=== PATIENT | female | born 1980 | race Caucasian/White ===

== ENCOUNTER 2021-03-19 05:08 | Emergency (ER) | payer SELFPAY ==
[~2021-03-19] VITALS: Ht 172.7 cm; Wt 63.5 kg
[2021-03-19 05:18] VITALS: BP_SYST 110
--- NOTE | 2021-03-19 05:23 | NUR ---
PT ARRIVED BY [facility] FOR COMPLAINTS OF BILATERAL LEG PAIN AFTER BEING FOUND [place]ALKING [place]. PT STATES SHE IS TIRED AND HER LEGS HURT. STATES 10/10 PAIN. PT WAS FOUND BY POLICE OFFICERS AND ASKED FOR AN AMBULANCE DUE TO THE PAIN. [id number].
--- NOTE | 2021-03-19 05:35 | NUR ---
PT IS SCREAMING AND WAILING IN HER ROOM COMPLAININGOF LEG PAIN. DOCTOR IS AWARE
[2021-03-19] MEDS ORDERED: fentaNYL CITRATE/PF 100 MCG/2 ML AMP IVP ONE (05:45)
[2021-03-19] MEDS ORDERED: PROCHLORPERAZINE EDISYLATE 10 MG/2 ML VIAL IVP ONE (05:45)
[2021-03-19] MEDS ORDERED: LORazepam 2 MG/ML VIAL IVP ONE (05:45)
[2021-03-19 05:51] LABS: BASOPHILS # (AUTO) 0.1 K/uL (0.0-0.2); BASOPHILS % (AUTO) 0.4 % (0.0-2.0); EOSINOPHILS # (AUTO) 0.3 K/uL (0.0-0.4); HEMATOCRIT 34.4 % (36-48); HEMOGLOBIN 11.6 g/dL (12.0-16.0); LYMPHOCYTES # (AUTO) 1.8 K/uL (1.0-5.5); LYMPHOCYTES % (AUTO) 12.3 % (20.5-51.5); MEAN CORPUSCULAR HEMOGLOBIN 30 pg (27-31); MEAN CORPUSCULAR HGB CONC 34 % (32-36); MEAN CORPUSCULAR VOLUME 88 fL (79.0-98.0); MONOCYTES # (AUTO) 1.2 K/uL (0.0-1.0); MONOCYTES % (AUTO) 8.4 % (1.7-9.3); NEUTROPHILS % (AUTO) 76.9 % (40.0-70.0); PLATELET COUNT (AUTO) 490 K/uL (130-430); RED BLOOD CELL COUNT(AUTO) 3.91 MIL/uL (4.2-6.2); RED CELL DISTRIBUTION WIDTH 15.3 % (9.0-15.0); WHITE BLOOD COUNT (AUTO) 14.3 K/uL (4.8-10.8)
[2021-03-19 05:57] LABS: CALCIUM 8.3 mg/dL (8.4-11.0); CREATININE 0.68 mg/dL (0.55-1.30); POTASSIUM 3.7 mmol/L (3.5-5.1)
--- NOTE | 2021-03-19 06:00 | NUR ---
ER at bedside examining patient.
[2021-03-19 06:03] LABS: ALBUMIN 3.1 g/dL (3.4-4.8); TOTAL BILIRUBIN 0.3 mg/dL (0.0-1.0)
--- NOTE | 2021-03-19 06:12 | NUR ---
radiology at bedside
[2021-03-19 07:12] LABS: ERYTHROCYTE SEDIMENTATION RATE 26 MM/HR (0-20)
--- NOTE | 2021-03-19 07:32 | NUR ---
REPORT RECEIVED, PT LAYING IN BED, IN NAD. RESP EVEN AND UNLABORED, ON RA @99%. EASILY AROUSABLE, BUT CLOSES EYES WHEN TALKED TO. VERBLIZES " LET ME SLEEP", PT ON MONITOR, SR. VSS. IV FLUIDS INFUSING WELL. SAFETY MEAURES IN PLACE. WAITING FOR DISPOSITION.
[2021-03-19] MEDS ORDERED: TRAM50TA PO (08:57)
--- NOTE | 2021-03-19 09:15 | NUR ---
Assumed care of pt., sleeping, no signs of distress
[2021-03-19] MEDS ORDERED: HYDROcodone/ACETAMIN 5-325 MG TAB (NORCO/ VICODIN) PO ONE (10:15)
--- NOTE | 2021-03-19 10:15 | NUR ---
Joy from Case management here to see pt. and assist with transportation/arrangements for discharge
[2021-03-19 10:25] LABS: BILIRUBIN,URINE NEGATIVE (NEGATIVE); BLOOD, URINE NEGATIVE (NEGATIVE); CLARITY/URINE CLEAR (CLEAR); COLOR,URINE YELLOW (YELLOW); GLUCOSE,URINE NEGATIVE (NEGATIVE); KETONES,URINE NEGATIVE (NEGATIVE); LEUKOCYTE ESTERASE ,URINE NEGATIVE (NEGATIVE); NITRITE, URINE NEGATIVE (NEGATIVE); PH,URINE 7.5 (5.0-8.0); PROTEIN URINE NEGATIVE (NEGATIVE); UROBILINOGEN,URINE 0.2 (0.2-1.0)
[2021-03-19 10:42] LABS: BARBITURATE, URINE NEGATIVE (NEG <=200); BENZODIAZEPINE, URINE POSITIVE (NEG <=150); CANNABINOID, URINE POSITIVE (NEG <=50); COCAINE, URINE NEGATIVE (NEG <=150); METHAMPHETAMINES SCREEN,URINE POSITIVE (NEG <=500); OPIATE, URINE NEGATIVE (NEG <=100); PHENCYCLIDINE SCREEN,URINE NEGATIVE (NEG <=25); UR TRICYCLIC ANTIDEPRESSANTS NEGATIVE (NEG <=300); URINE AMPHETAMINE POSITIVE (NEG <=500); URINE METHADONE NEGATIVE (NEG <=200); URINE OXYCODONE SCREEN NEGATIVE (NEG <=100); URINE PROPOXYPHENE SCREEN NEGATIVE (NEG <=300)
--- NOTE | 2021-03-19 14:55 | NUR ---
Pt. awake, lunch tray given, pt. unable to give an address for discharge, taxi voucher has been offeref by case management but pt. requestiong a house or hotel.
--- NOTE | 2021-03-19 15:20 | NUR ---
Case management has seen patient, multiple attempts to provide pt. with a taxi for transportation home, pt. would not provide an address, homeless pack given with list of resources.
--- NOTE | 2021-03-19 15:30 | NUR ---
Note undone in EDM - 03/19/21 at 1600 by JANE Patient given written and verbal discharge instructions and verbalizes understanding. Dr. Montero discussed with patient the results and treatment provided. Patient in stable condition. ID arm band removed. IV catheter removed intact and dressing applied, no active bleeding. Rx of Tramadol given. Patient educated on pain management and to follow up with PMD. Pain Scale 0. Opportunity for questions provided and answered. Medication side effect fact sheet provided.
--- NOTE | 2021-03-19 15:30 | NUR ---
Patient given written and verbal discharge instructions and verbalizes understanding. ER Dr. Montero discussed with patient the results and treatment provided. Patient in stable condition. ID arm band removed. Rx of Tramadol given. Patient educated on pain management and to follow up with PMD. Pain Scale 0. Opportunity for questions provided and answered. Medication side effect fact sheet provided.
[2021-03-19 15:35] VITALS: BP_SYST 116
--- NOTE | 2021-03-19 15:45 | NUR ---
Called police department to notify patient left ER with IV on LAC , spoke with officer marco antonio who states they will follow up on patient and make a report, charge nurse notified.
--- NOTE | 2021-03-19 17:14 | NUR ---
Spoke w/ patient-she was given resources for homeless shelters and homeless assistance. She requested transportation to [facility]. I informed her we could only give a taxi voucher for 20 [address] radius of the hospital. I asked her to let the nurse know the address within 20 miles and she would give her a taxi voucher. I informed the nurse of my conversation with the patient.
== END 2021-03-19 15:35 | disposition home or self-care (01) ==
LOC: SED 05:08
DX: G89.29 Other chronic pain (principal); M79.604 Pain in right leg; F15.90 Other stimulant use, unspecified, uncomplicated
CPT/HCPCS: 36415; 73590; 80053; 80307; 81003; 85025; 85651; 96374; 96375; 99285; J0780; J2060; J3010